=== PATIENT | female | born 1955 | race Caucasian/White ===

== ENCOUNTER → 2017-06-12 13:36 | Outpatient (CLI) | payer MEDICARE, MEDICAID ==
[2015-03-17 13:32] VITALS: BMI 30.2
[~2017-06-12 13:36] MED LIST: CYCLOBENZAPRINE10 MG PO; DOXYCYCLINE HY100 M2 PO; LASIX20 MG PO; MELATONIN 3 MG1 TAB PO; MORPHINE SULFAT30 MG PO; NORVASC5 MG PO; PRILOSEC20 MG PO; TENORMIN25 MG PO
== END | disposition home or self-care (01) ==
LOC: D.US 06-11 14:00
DX: R60.0 Localized edema (principal)